=== PATIENT | male | born 1975 | race Asian ===

== ENCOUNTER 2017-02-09 00:09 | Emergency (ER) | payer OTHER ==
[~2017-02-09] VITALS: Ht 193 cm; Wt 130.0 kg
[2017-02-09] MEDS ORDERED: ONDANSETRON 4MG ODT PO ONE (03:00)
[2017-02-09] MEDS ORDERED: KETOROLAC 60MG/2ML VIAL IM ONE (03:00)
[2017-02-09 03:02] LABS: BASOPHILS % 0.6 % (0.0-2.0); HEMATOCRIT. 43.2 % (42.0-52.0); HEMOGLOBIN. 14.6 g/dL (14.0-18.0); LYMPHOCYTES % 18.5 % (20.0-50.0); MEAN CORPUSCULAR HEMOGLOBIN 31.5 pg (28.0-32.0); MEAN CORPUSCULAR VOLUME 92.8 fL (80.0-94.0); MEAN PLATELET VOLUME 7.6 fl (7.4-10.4); MONOCYTES % 8.5 % (2.0-8.0); NEUTROPHILS % 71.4 % (40.0-76.0); PLATELET 198 x1000/uL (130-400); RED BLOOD CELL COUNT 4.65 mill/uL (4.7-6.1); RED CELL DISTRIBUTION WIDTH 13.8 % (11.6-14.6)
[2017-02-09 03:13] LABS: CARBON DIOXIDE 27 mEq/L (21-32); CHLORIDE 105 mEq/L (98-107)
[2017-02-09 04:21] VITALS: BP 135/94
== END 2017-02-09 04:38 | disposition home or self-care (01) ==
LOC: ER 00:12
DX: R51 Headache (principal); R04.0 Epistaxis
CPT/HCPCS: 36415; 80053; 85025; 96372; 99284; J1885; Q0162; Z7610